=== PATIENT | female | born 1995 | race Caucasian/White ===

== ENCOUNTER → 2019-09-14 | Outpatient (CLI) | payer OTHER | END | disposition home or self-care (01) | LOC: LAB 10:05 → LAB SHORT 10:05 | DX: J02.9 Acute pharyngitis, unspecified (principal) | CPT/HCPCS: 87081 ==

== ENCOUNTER 2020-08-04 18:10 | Emergency (ER) | payer OTHER ==
[~2020-08-04] VITALS: Ht 160 cm; Wt 71.7 kg
[2020-08-04] MEDS ORDERED: IBUP600 PO (19:22)
[2020-08-04] MEDS ORDERED: ONDA4 PO (19:22)
== END 2020-08-04 19:34 | disposition home or self-care (01) ==
LOC: ER 18:10
DX: S06.0X9A Concussion with loss of consciousness of unspecified duration, initial encounter (principal); S16.1XXA Strain of muscle, fascia and tendon at neck level, initial encounter; W18.30XA Fall on same level, unspecified, initial encounter
CPT/HCPCS: 99282

== ENCOUNTER 2021-10-25 09:04 | Inpatient (IN) | payer OTHER ==
[~2021-10-25] VITALS: Ht 157.5 cm; Wt 102.0 kg
[~2021-10-25 09:04] MED LIST: IBUP600 PO; ONDA4 PO
[2021-10-25 10:38] LABS: BASOPHILS ABSOLUTE AUTO 0.06 K/mm3 (0.00-0.23); BASOPHILS PERCENT AUTO 0 % (0-2); EOSINOPHILS ABSOLUTE AUTO 0.09 K/mm3 (0.00-0.68); EOSINOPHILS PERCENT AUTO 1 % (0-6); Hemoglobin 11.9 g/dL (11.5-16.0); IMMATURE GRAN ABSOLUTE AUTO 0.16 K/mm3 (0.00-0.10); IMMATURE GRAN PERCENT AUTO 1 % (0-1); LYMPHOCYTES ABSOLUTE AUTO 1.68 K/mm3 (0.84-5.20); LYMPHOCYTES PERCENT AUTO 10 % (21-46); MONOCYTES ABSOLUTE AUTO 1.16 K/mm3 (0.16-1.47); MONOCYTES PERCENT AUTO 7 % (4-13); Mean Corpuscular HGB 28.6 pg (26.0-34.0); Mean Corpuscular Volume 84 fL (80-100); NEUTROPHILS ABSOLUTE AUTO 14.47 K/mm3 (1.96-9.15); NEUTROPHILS PERCENT AUTO 82 % (41-73); Platelet Count 175 K/mm3 (150-400); RDW Coefficient Variation 13.7 % (11.7-14.2); RDW Standard Deviation 42.5 fL (35.1-46.3); Red Blood Cell Count 4.16 M/mm3 (3.80-5.20); White Blood Cell Count 17.62 K/mm3 (4.00-11.30)
[2021-10-25 10:41] LABS: Mean Platelet Volume 13.4 fL (9.1-12.4)
--- NOTE | 2021-10-25 21:44 | NUR ---
10/25/21 2144 Reggie Aponte BABY BOY BORN AT 2117. CORD SEGMENT GIVEN TO RT. CORD BLOOD GIVEN TO BABY NURSE.
[2021-10-26 06:29] LABS: BASOPHILS ABSOLUTE AUTO 0.04 K/mm3 (0.00-0.23); BASOPHILS PERCENT AUTO 0 % (0-2); EOSINOPHILS ABSOLUTE AUTO 0.09 K/mm3 (0.00-0.68); EOSINOPHILS PERCENT AUTO 1 % (0-6); Hematocrit 30.6 % (33.0-51.0); Hemoglobin 10.4 g/dL (11.5-16.0); IMMATURE GRAN PERCENT AUTO 1 % (0-1); LYMPHOCYTES ABSOLUTE AUTO 1.81 K/mm3 (0.84-5.20); LYMPHOCYTES PERCENT AUTO 10 % (21-46); MONOCYTES ABSOLUTE AUTO 1.22 K/mm3 (0.16-1.47); MONOCYTES PERCENT AUTO 7 % (4-13); Mean Corpuscular HGB 28.7 pg (26.0-34.0); Mean Corpuscular Volume 84 fL (80-100); NEUTROPHILS ABSOLUTE AUTO 14.44 K/mm3 (1.96-9.15); NEUTROPHILS PERCENT AUTO 82 % (41-73); Platelet Count 123 K/mm3 (150-400); RDW Coefficient Variation 13.8 % (11.7-14.2); RDW Standard Deviation 42.5 fL (35.1-46.3); Red Blood Cell Count 3.63 M/mm3 (3.80-5.20)
--- NOTE | 2021-10-26 08:49 | NUR ---
PATIENT AWAKE AND ALERT, PAD AND LINEN CHANGE DONE, PATIENT TOLERATED FAIR. BLEEDING SCANT. S/O SUPPORTIVE AT BEDSIDE
--- NOTE | 2021-10-26 13:47 | NUR ---
offered rita care and pad change patient declined at this time
--- NOTE | 2021-10-26 18:37 | NUR ---
1800 ACTIVITY PATIENT OOB TO SHOWER, TOLERATED WELL. ABDOMINAL DRESSING REMOVED. INCISION CLEAN, DRY AND INTACT.
[2021-10-27 05:56] LABS: Hematocrit 29.9 % (33.0-51.0); Hemoglobin 10.2 g/dL (11.5-16.0); Mean Corpuscular HGB 29.1 pg (26.0-34.0); Mean Corpuscular HGB Conc 34.1 g/dL (31.5-36.5); Mean Corpuscular Volume 85 fL (80-100); Mean Platelet Volume 12.7 fL (9.1-12.4); Platelet Count 133 K/mm3 (150-400); RDW Coefficient Variation 14.2 % (11.7-14.2); RDW Standard Deviation 43.6 fL (35.1-46.3); Red Blood Cell Count 3.51 M/mm3 (3.80-5.20)
[2021-10-27 05:58] LABS: BASOPHILS ABSOLUTE AUTO 0.04 K/mm3 (0.00-0.23); BASOPHILS PERCENT AUTO 0 % (0-2); EOSINOPHILS ABSOLUTE AUTO 0.12 K/mm3 (0.00-0.68); EOSINOPHILS PERCENT AUTO 1 % (0-6); IMMATURE GRAN ABSOLUTE AUTO 0.14 K/mm3 (0.00-0.10); IMMATURE GRAN PERCENT AUTO 1 % (0-1); LYMPHOCYTES ABSOLUTE AUTO 1.33 K/mm3 (0.84-5.20); LYMPHOCYTES PERCENT AUTO 9 % (21-46); MONOCYTES ABSOLUTE AUTO 1.04 K/mm3 (0.16-1.47); MONOCYTES PERCENT AUTO 7 % (4-13); NEUTROPHILS ABSOLUTE AUTO 13.03 K/mm3 (1.96-9.15); NEUTROPHILS PERCENT AUTO 83 % (41-73)
[2021-10-27] MEDS ORDERED: Percocet 5-3251 EACH PO (09:41)
[2021-10-27] MEDS ORDERED: PRENATAL TABLE1 EAC2 PO (09:42)
[2021-10-27] MEDS ORDERED: DOCU100 PO (09:42)
[2021-10-27] MEDS ORDERED: IBUP800 PO (09:42)
--- NOTE | 2021-11-04 16:04 | NUR ---
UPDATED OR SURGICAL CHECKLIST PER RN/EMR
== END 2021-10-27 14:35 | disposition home or self-care (01) | DRG 788 ==
LOC: OBS 09:04 → BC 09:05 → OBS 09:59 → BC 10:01
PROVIDERS: Obstetrics & Gynecology; ADMIT Advanced Practice Midwife
PROC: 10D00Z1 Extraction of Products of Conception, Low, Open Approach (ICD-10-PCS; principal; 2021-10-25 10:45)
DX: O48.0 Post-term pregnancy (principal); O42.02 Full-term premature rupture of membranes, onset of labor within 24 hours of rupture; Z37.0 Single live birth; O61.9 Failed induction of labor, unspecified; O64.0XX0 Obstructed labor due to incomplete rotation of fetal head, not applicable or unspecified; O69.1XX0 Labor and delivery complicated by cord around neck, with compression, not applicable or unspecified; Z3A.40 40 weeks gestation of pregnancy; Z98.890 Other specified postprocedural states; Z90.5 Acquired absence of kidney; O99.02 Anemia complicating childbirth; D69.6 Thrombocytopenia, unspecified; Z88.8 Allergy status to other drugs, medicaments and biological substances; O72.3 Postpartum coagulation defects
CPT/HCPCS: 36415; 51702; 59025; 81003; 82803; 85025; 86850; 86900; 86901; A9270; J0456; J0690; J1885; J2001; J2590; J2765; J3010; J7050; J7120

== ENCOUNTER → 2024-06-01 | Outpatient (CLI) | payer OTHER ==
[~2024-06-01] MED LIST changes: +DOCU100 PO; +IBUP800 PO; +PRENATAL TABLE1 EAC2 PO; +Percocet 5-3251 EACH PO
[2024-06-01 19:12] LABS: BASOPHILS ABSOLUTE AUTO 0.04 K/mm3 (0.00-0.23); BASOPHILS PERCENT AUTO 0 % (0-2); EOSINOPHILS ABSOLUTE AUTO 0.12 K/mm3 (0.00-0.68); EOSINOPHILS PERCENT AUTO 1 % (0-6); Hematocrit 33.5 % (33.0-51.0); Hemoglobin 11.3 g/dL (11.5-16.0); IMMATURE GRAN PERCENT AUTO 1 % (0-1); LYMPHOCYTES ABSOLUTE AUTO 1.45 K/mm3 (0.84-5.20); LYMPHOCYTES PERCENT AUTO 10 % (21-46); MONOCYTES ABSOLUTE AUTO 1.04 K/mm3 (0.16-1.47); MONOCYTES PERCENT AUTO 8 % (4-13); Mean Corpuscular HGB 27.6 pg (26.0-34.0); Mean Corpuscular HGB Conc 33.7 g/dL (31.5-36.5); Mean Corpuscular Volume 82 fL (80-100); Mean Platelet Volume 12.5 fL (9.1-12.4); NEUTROPHILS ABSOLUTE AUTO 11.18 K/mm3 (1.96-9.15); NEUTROPHILS PERCENT AUTO 80 % (41-73); Platelet Count 214 K/mm3 (150-400); RDW Coefficient Variation 13.4 % (11.7-14.2); RDW Standard Deviation 39.8 fL (35.1-46.3); White Blood Cell Count 13.93 K/mm3 (4.00-11.30)
== END ==
LOC: LAB 17:01 → LAB SHORT 17:01
PROVIDERS: Advanced Practice Midwife
DX: Z34.92 Encounter for supervision of normal pregnancy, unspecified, second trimester (principal)
CPT/HCPCS: 82950; 85025

== ENCOUNTER 2024-08-25 05:08 | Inpatient (IN) | payer OTHER ==
[2024-08-25] VITALS (18 sets, daily range): BP systolic 96–147; BP diastolic 53–102
[~2024-08-25] VITALS: Ht 157.5 cm; Wt 109.5 kg
[~2024-08-25 05:08] MED LIST changes: +CeFAZolin Sodium 2,000 MG in NS 100 ML IV SCH; +Citric Acid/Sodium Citrate 30 ML BTL PO PRN; +Famotidine 10 MG/ML 2ML Vial IV PRN; +Lactated Ringer's 1,000 ML IV SCH; +Metoclopramide HCl 5MG / ML 2ML Vial IV PRN
[2024-08-25] MEDS ORDERED: CeFAZolin Sodium 2,000 MG in NS 100 ML IV SCH (05:20)
[2024-08-25] MEDS ORDERED: Lactated Ringer's 1,000 ML IV SCH ×2 (05:20)
[2024-08-25] MEDS ORDERED: Citric Acid/Sodium Citrate 30 ML BTL PO PRN ×2 (05:25→06:30)
[2024-08-25] MEDS ORDERED: Metoclopramide HCl 5MG / ML 2ML Vial IV PRN (05:25)
[2024-08-25] MEDS ORDERED: Famotidine 10 MG/ML 2ML Vial IV PRN (05:25)
[2024-08-25] MEDS ORDERED: HYDHCL25 PO (05:52)
[2024-08-25 06:06] LABS: BASOPHILS ABSOLUTE AUTO 0.07 K/mm3 (0.00-0.23); BASOPHILS PERCENT AUTO 1 % (0-2); EOSINOPHILS ABSOLUTE AUTO 0.15 K/mm3 (0.00-0.68); EOSINOPHILS PERCENT AUTO 1 % (0-6); Hematocrit 31.6 % (33.0-51.0); Hemoglobin 10.5 g/dL (11.5-16.0); IMMATURE GRAN ABSOLUTE AUTO 0.08 K/mm3 (0.00-0.10); IMMATURE GRAN PERCENT AUTO 1 % (0-1); LYMPHOCYTES ABSOLUTE AUTO 1.94 K/mm3 (0.84-5.20); LYMPHOCYTES PERCENT AUTO 15 % (21-46); MONOCYTES ABSOLUTE AUTO 0.99 K/mm3 (0.16-1.47); MONOCYTES PERCENT AUTO 7 % (4-13); Mean Corpuscular HGB 26.2 pg (26.0-34.0); Mean Corpuscular HGB Conc 33.2 g/dL (31.5-36.5); Mean Corpuscular Volume 79 fL (80-100); Mean Platelet Volume 12.9 fL (9.1-12.4); NEUTROPHILS ABSOLUTE AUTO 10.18 K/mm3 (1.96-9.15); NEUTROPHILS PERCENT AUTO 76 % (41-73); Platelet Count 205 K/mm3 (150-400); RDW Standard Deviation 40.3 fL (35.1-46.3); Red Blood Cell Count 4.01 M/mm3 (3.80-5.20); White Blood Cell Count 13.41 K/mm3 (4.00-11.30)
[2024-08-25 06:28] LABS: Albumin, Blood 2.8 g/dL (3.4-5.0); Albumin/Globulin Ratio 0.7 (0.8-1.8); Bilirubin, Total 0.3 mg/dL (0.1-1.0); Bun/Creatinine Ratio 15.6 (12.0-20.0); Creatinine, Blood 0.77 mg/dL (0.40-1.00); Globulin, Blood 4.1 g/dL (2.2-4.0); Potassium, Blood 3.8 mmol/L (3.5-5.5); Total Protein, Blood 6.9 g/dL (6.4-8.2)
[2024-08-25] MEDS ORDERED: Morphine Sulfate/PF 1 MG/ML 10MLVIAL ONE (07:08)
[2024-08-25] MEDS ORDERED: Oxytocin 10 Unit / ML Vial ONE (08:01)
[2024-08-25] MEDS ORDERED: Phenylephrine HCl 100 MCG/ML-NS 10MLSYR (1MG/10ML) ONE (08:01)
--- NOTE | 2024-08-25 08:22 | NUR ---
08/25/24 0822 Gillian Mancini 0808 VIABLE FEMALE 7LBS 14 OZ [id number]. 15.5IN HEAD, 14IN CHEST, 20.5 LENGTH APGARS 99
[2024-08-25] MEDS ORDERED: FentaNYL Citrate 50 MCG/ML 2 ML Injection ONE (08:26)
[2024-08-25] MEDS ORDERED: Ondansetron HCl 2 MG / ML 2ML Vial ONE (08:26)
[2024-08-25] MEDS ORDERED: propofoL 20 ML IV ONE (08:49)
[2024-08-25] MEDS ORDERED: Ketorolac Tromethamine 30mg Vial ONE (09:17)
[2024-08-25] MEDS ORDERED: HydrOXYzine Pamoate 25 MG Cap PO PRN (10:15)
[2024-08-25] MEDS ORDERED: Simethicone 80 MG Chew PO PRN (10:15)
[2024-08-25] MEDS ORDERED: Acetaminophen 500 MG Tab PO PRN (10:15)
[2024-08-25] MEDS ORDERED: Magnesium Hydroxide Conc 10 ML UDC PO PRN (10:20)
[2024-08-25] MEDS ORDERED: OxyCODONE HCL 5 MG TAB PO PRN ×2 (10:20)
[2024-08-25] MEDS ORDERED: Lanolin Cream TOP PRN (10:20)
[2024-08-25] MEDS ORDERED: Ketorolac Tromethamine 30mg Vial IV SCH (11:00)
[2024-08-25] MEDS ORDERED: Ibuprofen 400 MG Tab PO SCH (16:00)
[2024-08-25] MEDS ORDERED: Docusate Sodium 100 MG Cap PO SCH (21:00)
[2024-08-25] MEDS ORDERED: Sennosides 8.6 MG Tab PO SCH (21:00)
[2024-08-26] VITALS (7 sets, daily range): BP systolic 103–120; BP diastolic 56–68
[2024-08-26 06:22] LABS: BASOPHILS ABSOLUTE AUTO 0.05 K/mm3 (0.00-0.23); BASOPHILS PERCENT AUTO 0 % (0-2); EOSINOPHILS ABSOLUTE AUTO 0.19 K/mm3 (0.00-0.68); EOSINOPHILS PERCENT AUTO 1 % (0-6); Hemoglobin 9.9 g/dL (11.5-16.0); IMMATURE GRAN PERCENT AUTO 1 % (0-1); LYMPHOCYTES ABSOLUTE AUTO 1.35 K/mm3 (0.84-5.20); LYMPHOCYTES PERCENT AUTO 9 % (21-46); MONOCYTES ABSOLUTE AUTO 1.35 K/mm3 (0.16-1.47); MONOCYTES PERCENT AUTO 9 % (4-13); Mean Corpuscular HGB 26.5 pg (26.0-34.0); Mean Corpuscular Volume 80 fL (80-100); Mean Platelet Volume 12.8 fL (9.1-12.4); NEUTROPHILS ABSOLUTE AUTO 12.19 K/mm3 (1.96-9.15); NEUTROPHILS PERCENT AUTO 80 % (41-73); Platelet Count 174 K/mm3 (150-400); RDW Coefficient Variation 14.1 % (11.7-14.2); RDW Standard Deviation 41.1 fL (35.1-46.3); Red Blood Cell Count 3.74 M/mm3 (3.80-5.20); White Blood Cell Count 15.23 K/mm3 (4.00-11.30)
[2024-08-26] MEDS ORDERED: Prenatal Vit/FE Fumarate/FA 1 Tab PO SCH (09:00)
--- NOTE | 2024-08-26 21:37 | NUR ---
Pt called to report bumps on neck, small white papules noted under chin and upper neck. Bumps are not itchy, no erythema noted, pt denies swelling in mouth, nose neck, face, denies breathing difficulty. No swelling or rashes noted in other areas. Bumps resemble keratisis pilaris and appeared about 30 min after taking acetaminophen and oxycodone, which the patient has taken before without noticing any reaction. Pt denies ingesting anything out of the ordinary and has recenty used HEMPZ lotion all over face, neck, hands, body after shower, whereas she usually only uses a small amount on hands. Pt states she "is not concerned but Augmentra told me to tell you." Plan is to continue to monitor, take tyelnol and oxycodone at seperate times, and to call provider with concerns if persists or exacerbates. Offered to call for alternate pain medicatio but pt declines.
[2024-08-27 05:30] VITALS: BP 110/65
[2024-08-27 08:02] VITALS: BP 113/75
[2024-08-27 12:15] VITALS: BP 128/71
== END 2024-08-27 12:20 | disposition home or self-care (01) | DRG 785 ==
LOC: BC 05:08
PROVIDERS: ADMIT Family Medicine
PROC: 0UT70ZZ Resection of Bilateral Fallopian Tubes, Open Approach (ICD-10-PCS; principal; 2024-08-25 07:30)
PROC: 10D00Z1 Extraction of Products of Conception, Low, Open Approach (ICD-10-PCS; principal; 2024-08-25 07:30)
DX: O34.211 Maternal care for low transverse scar from previous cesarean delivery (principal); Z37.0 Single live birth; O90.81 Anemia of the puerperium; Z30.2 Encounter for sterilization; Z3A.39 39 weeks gestation of pregnancy
CPT/HCPCS: 36415; 80053; 85025; 86850; 86900; 86901; 86923; 88302; A9270; J1885; J2274; J2371; J2405; J2590; J2704; J3010; J7120; Q0177